=== PATIENT | male | born 1940 | race Caucasian/White ===

== ENCOUNTER 2019-11-30 14:47 | Emergency (ER) | payer OTHER ==
[~2019-11-30] VITALS: Ht 182.9 cm; Wt 95.3 kg
[2019-11-30 14:47] VITALS: Ht 182.9 cm; Wt 95.3 kg
== END 2019-11-30 23:59 | disposition expired ==
LOC: ED 14:47
DX: I46.9 Cardiac arrest, cause unspecified (principal); I10 Essential (primary) hypertension
CPT/HCPCS: J3490